=== PATIENT | male | born 1995 | race American Indian/Alaskan Native ===

== ENCOUNTER 2018-09-16 16:19 | Emergency (ER) | payer SELFPAY ==
--- NOTE | 2018-09-16 16:43 | Emergency Department Report ---
Blank Doc - Documentation Documentation: This is a 23-year-old male that presents with dizziness x2 months. Stated is intermittent. Denies any other complaints. Exam: neuro exam within normal limits This initial assessment diagnostic orders/clinical plan/treatment(s) is/are subject to change based on patient's health status, clinical progression and re- assessment by fellow clinical providers in the ED. Further treatment and workup at subsequent clinical providers discretion. Patient/guardians urged not to elope from ED s their condition may be serious if not clinically assessed and managed. Initial orders include: 1-patient sent to [facility] for further evaluation and treatment. 2- orthostatic v/s 3- labs
[2018-09-16 16:45] VITALS: BP 141/72
[2018-09-16 17:11] LABS: Basophils % (Auto) 0.7 % (0.0-1.8); Eosinophils # (Auto) 0.1 K/mm3 (0.0-0.4); Hematocrit 43.9 % (35.5-45.6); Hemoglobin 14.8 gm/dl (11.8-15.2); Lymphocytes # (Auto) 1.8 K/mm3 (1.2-5.4); Mean Corpuscular HGB Conc 34 % (32-34); Mean Corpuscular Volume 92 fl (84-94); Monocytes # (Auto) 0.3 K/mm3 (0.0-0.8); Monocytes % (Auto) 5.1 % (0.0-7.3); Platelet Count 217 K/mm3 (140-440); Red Blood Count 4.77 M/mm3 (3.65-5.03); Red Cell Distribution Width 13.3 % (13.2-15.2)
[2018-09-16 17:25] LABS: BUN/Creatinine Ratio 11; Blood Urea Nitrogen 10 mg/dL (9-20); Calcium 9.1 mg/dL (8.4-10.2); Hemolysis Index 9
== END 2018-09-16 21:56 | disposition left against medical advice (07) ==
LOC: ED 16:19
DX: R42 Dizziness and giddiness (principal)
CPT/HCPCS: 36415; 80048; 82962; 85025

== ENCOUNTER 2020-06-03 09:33 | Emergency (ER) | payer SELFPAY ==
[2020-06-03 09:52] VITALS: BP 160/97
--- NOTE | 2020-06-03 10:29 | Emergency Department Report ---
Chief Complaint: Urogenital-Male Stated Complaint: PENILE DISCHARGE Time Seen by Provider: 06/03/20 10:22 - HPI History of Present Illness: Patient is a 24-year-old male who presents emergency room with complaints of penile discharge that began last night. He states that it is a yellow/green color. He denies any dysuria, nausea, vomiting, diarrhea, fever, urinary retention, hematuria, pain or swelling the testicles, abdominal pain. He denies any past medical history. No allergies to medications. he states he has been sexually active without protection. he denies any STD history. vss on exam: Non toxic appearing, no acute distress atraumatic, normocephalic normal appearance of the eyes,EOMI, no periorbital edema or ecchymosis moist mucus membranes no respiratory distress, no accessory muscle use A&O x4, normal gait Patient is presenting for STD-like symptoms Patient be referred to the health department and clinic discussed strict return precautions Medical screening exam performed and there is no threat to life or limb at this time - Exam Vital Signs: Vital Signs 06/03/20 09:52 Temperature 98 F Pulse Rate 83 Respiratory 18 Rate Blood Pressure 160/97 [Right] O2 Sat by Pulse 99 Oximetry MSE screening note: Focused history and physical exam performed. ED Disposition for MSE Clinical Impression: Concern about STD in male without diagnosis Disposition: Z-07 MED SCREENING EXAM-LEFT Is pt being admited?: No Does the pt Need Aspirin: No Condition: Stable Instructions: Sexually Transmitted Diseases (ED), Safe Sex (ED) Additional Instructions: Please follow-up with the health department or clinic for full STD panel. Please have any partner tested and treated as well. Avoid sexual intercourse. Return to emergency room for any new or worsening symptoms. [facility] Address: [address] [place] [id number] Referrals: [facility] Depart [Outside] - 2-3 Days Time of Disposition: 10:24 Print Language: BENINESE
== END 2020-06-03 10:36 | disposition left against medical advice (07) ==
LOC: ED 09:33
DX: R36.9 Urethral discharge, unspecified (principal); Z53.21 Procedure and treatment not carried out due to patient leaving prior to being seen by health care provider